=== PATIENT | female | born 1975 | race Caucasian/White ===

== ENCOUNTER 2017-05-23 14:48 | Emergency (ER) | payer BC ==
[~2017-05-23] VITALS: Ht 157.5 cm; Wt 55.0 kg
[2017-05-23 16:05] LABS: ADD MIUA? YES; BILIRUBIN NEGATIVE; BLOOD NEGATIVE; COLOR AMBER ((YELLOW)); GLUCOSE (STRIP) NEGATIVE; KETONES NEGATIVE; LEUKOCYTES SMALL; NITRITE POSITIVE; PROTEIN (STRIP) 30; SPECIFIC GRAVITY 1.016 (1.000-1.030)
[2017-05-23 16:10] LABS: BACTERIA RARE /HPF; EPITHELIAL CELLS RARE /HPF; HYALINE CASTS 0-5 /LPF; MUCUS TRACE /LPF; RED BLOOD CELLS 0-5 /HPF (0-5); UCUL ADDED? YES; WHITE BLOOD CELLS 20-30 /HPF (0-5)
[2017-05-23 16:54] LABS: EOSINOPHIL (%) 1.3 % (0-5); EOSINOPHIL COUNT 0.1 K/uL (0-0.3); HEMATOCRIT 34.7 % (36.0-46.0); IMMATURE GRANULOCYTE (%) 0.1 % (0.0-0.7); INSTRUMENT ABS NEUTROPHIL CT 5.6 K/uL; LYMPHOCYTE COUNT 1.8 K/uL (1.0-2.8); MCHC 33.4 G/DL (30.0-36.0); MCV 95.9 FL (83-99); MEAN PLAT.VOLUME 9.5 uM^3 (9.5-12.4); MONOCYTE (%) 9.9 % (3-12); MONOCYTE COUNT 0.8 K/uL (0-0.8); NEUTROPHIL (%) 66.6 % (45-76); NEUTROPHIL COUNT 5.6 K/uL (1.8-6.4); PLATELET COUNT 257 K/uL (156-360); RBC DIS.WIDTH-CV 11.6 % (11.8-14.6); RBC DIS.WIDTH-SD 40.9 % (39-53); RED BLOOD COUNT 3.62 M/uL (3.80-5.20); WHITE BLOOD COUNT 8.4 K/uL (4.1-10.2)
[2017-05-23 17:04] LABS: CHLORIDE 108 mEq/L (99-109); POTASSIUM 4.4 mEq/L (3.7-5.4); SODIUM 141 mEq/L (136-147)
[2017-05-23 17:07] LABS: GLUCOSE 92 mg/dL (70-99)
[2017-05-23 17:08] LABS: ANION GAP 8 MEQ/L (2-14)
[2017-05-23 17:09] LABS: TOTAL BILIRUBIN 0.4 mg/dL (0.0-1.0)
[2017-05-23 17:10] LABS: ALKALINE PHOSPHATASE 85 IU/L (3-129); GFR ESTIMATE (CALCULATED) > 59 mL/min/
[2017-05-23 17:12] LABS: UREA NITROGEN (BUN) 11 mg/dL (9-23)
[2017-05-23] MEDS ORDERED: MOTRIN800 MG PO (19:22)
[2017-05-23] MEDS ORDERED: PYRIDIUM200 MG PO (19:22)
[2017-05-23] MEDS ORDERED: NORCO 7.5/321 TABLET PO (19:22)
[2017-05-23] MEDS ORDERED: KEFLEX500 MG PO (19:22)
[2017-05-23 19:41] VITALS: BP 114/67
== END 2017-05-23 19:41 | disposition home or self-care (01) ==
LOC: EME 14:48
PROVIDERS: Physician Assistant
DX: N12 Tubulo-interstitial nephritis, not specified as acute or chronic (principal); Z87.442 Personal history of urinary calculi; K57.30 Diverticulosis of large intestine without perforation or abscess without bleeding
CPT/HCPCS: 74176; 80053; 81003; 85025; 87077; 87086; 87186; 99281; 99284; J0696; J1885; J7050